=== PATIENT | female | born 1990 ===

== ENCOUNTER 2019-11-22 18:37 | Emergency (ER) | payer OTHER ==
[2019-11-22 18:50] VITALS: PULSE 90
--- NOTE | 2019-11-22 19:27 | EDM.PDOC ---
ED HPI GENERAL MEDICAL PROBLEM - General Chief Complaint: Upper Extremity Injury/Pain Stated Complaint: LT DUNG INJURY Time Seen by Provider: 11/22/19 19:04 Source of Information: Reports: Patient History Limitations: Reports: No Limitations - History of Present Illness INITIAL COMMENTS - FREE TEXT/NARRATIVE: HISTORY AND PHYSICAL: History of present illness: Patient is a 29-year-old female who presents to the emergency room with complaints of left clavicle pain. She was on a tube behind a boat when another person had fallen onto her shoulder. She has pain and obvious deformity of the left clavicle. She denies hitting her head or having any loss of consciousness. She denies any other extremity involvement. She has no numbness, weakness or difficulty with use of the left arm, although does have discomfort when involving the musculature around the clavicle. Patient denies any fever, chills, headache, change in vision, syncope or near syncope. Denies any chest pain, back pain, shortness of breath or cough. Denies any abdominal pain, nausea, vomiting, diarrhea, constipation or dysuria. Has not noted any blood in urine or stool. Patient has been eating and drinking appropriately. Review of systems: As per history of present illness and below otherwise all systems reviewed and negative. Past medical history: As per history of present illness and as reviewed below otherwise noncontributory. Surgical history: As per history of present illness and as reviewed below otherwise noncontributory. Social history: See social history for further information Family history: As per history of present illness and as reviewed below otherwise noncontributory. Physical exam: General: Well developed and well nourished 29-year-old female. Alert and orie ntated x 3. Nontoxic in appearance and in no acute distress. Vital signs are stable and have been reviewed by me. Nursing notes were reviewed. HEENT: Atraumatic, normocephalic, pupils equal and reactive bilaterally, negative for conjunctival pallor or scleral icterus, mucous membranes moist, trachea midline. No drooling or trismus noted. No meningeal signs. No hot potato voice noted. Lungs: Clear to auscultation, breath sounds equal bilaterally, chest nontender - left clavicle tenderness. Skin is intact and has no tenting. Normal work of breathing, no accessory muscles used. Heart: S1S2, regular rate and rhythm without overt murmur Abdomen: Soft, nondistended, nontender. C-spine/Back: No pinpoint vertebral tenderness upon palpation. No crepitus, step-offs or obvious deformities. Patient is ambulatory into the emergency room without difficulty or deficit. Able to rock back on heels and walk on toes. Denies any urinary or fecal incontinence. Denies any numbness, tingling or saddle paresthesia. No concerns of serious infection, fracture or cord compression, or cauda equina syndrome. Deep tendon reflexes brisk bilaterally. Skin: Intact, warm, dry. No lesions or rashes noted. Hematologic: No petechiae or purpra. Mucosa appropriate color and normal nail bed color and refill. Extremities: Left clavicle tenderness with deformity, no tenting. She moves all extremities per self without difficulty or deficits, negative for cords or calf pain. Neurovascular unremarkable. Neuro: Awake, alert, oriented. Cranial nerves II through XII unremarkable. Cerebellum unremarkable. Motor and sensory unremarkable throughout. Exam nonfocal. Notes: X-ray shows a displaced and comminuted mid left clavicle fracture with displacement. I did talk to Dr. Melchor Ramey at [facility] in [place], orthopedics stone cutter. He states the patient should follow-up within the week for reevaluation. This information was shared with the patient and she is comfortable with plan of care. Sling was provided with education, will wear until she follows up with the orthopedic provider. [id number] splint was reviewed and discussed, she declines wanting this. We discussed signs and symptoms that would prompt them to return to the Emergency Department. Medication, follow up and supportive care measures were reviewed and discussed. Voices understanding and is agreeable to plan of care. Denies any further questions or concerns at this time. Diagnostics: Clavicle xray Therapeutics: Westport, Sling Prescription: Westport Impression: Clavicle fracture, left Plan: 1. Today your physical exam shows a left clavicle fracture. Rest, ice and wear the sling as directed. 2. Tylenol and/or ibuprofen as needed for pain management. You can take the Westport for moderate to severe pain. This medication may cause drowsiness so do not take it while driving or needing to be functioning outside of the house. 3. Dr. Acosta, orthopedics in [place] will be available on Sunday or I did speak with Dr. Melchor Ramey, orthopedics in [place], who is also happy to see you. Please call either facility on Sunday to schedule an outpatient appointment. You should be seen in the next few days. If your symptoms should worsen, new symptoms develop or any of the signs and symptoms we discussed should arise please return to the emergency room or call 911 (if needed). Definitive disposition and diagnosis as appropriate pending reevaluation and review of above. 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 ED EXAM, GENERAL - Physical Exam Exam: See Below (See dictation) Course - Vital Signs Last Recorded V/S: Last Vital Signs Temp 96.3 F L 11/22/19 19:40 Pulse 90 11/22/19 19:40 Resp 14 11/22/19 19:40 BP 111/63 11/22/19 19:40 Pulse Ox 97 11/22/19 19:40 - Orders/Labs/Meds Orders: Active Orders 24 hr Category Date Time Status DME for Discharge [COMM] Stat Oth 11/22/19 19:40 Ordered Meds: Medications Discontinued Medications Generic Name Dose Route Start Last Admin Trade Name Freq PRN Reason Stop Dose Admin Hydrocodone Bitart/Acetaminophen 1 tab 11/22/19 19:40 11/22/19 19:45 Westport 325-5 Mg PO 11/22/19 19:41 1 tab ONETIME ONE Administration Departure - Departure Time of Disposition: 19:54 Disposition: Home, Self-Care 01 Clinical Impression: Fracture, clavicle closed, shaft Qualifiers: Encounter type: initial encounter Fracture alignment: displaced Laterality: left Qualified Code(s): S42.022A - Displaced fracture of shaft of left clavicle, initial encounter for closed fracture - Discharge Information Prescriptions: Acetaminophen/HYDROcodone [Westport 325-5 MG] 1 dose PO Q4H PRN #20 tablet PRN Reason: Pain Instructions: Clavicle Fracture, [id number] Referrals: Jerson Terry MD [Primary Care Provider] - Forms: ED Department Discharge Additional Instructions: The following information is given to patients seen in the emergency department who are being discharged to home. This information is to outline your options for follow-up care. We provide all patients seen in our emergency department with a follow-up referral. The need for follow-up, as well as the timing and circumstances, are variable depending upon the specifics of your emergency department visit. If you don't have a primary care physician on staff, we will provide you with a referral. We always advise you to contact your personal physician following an emergency department visit to inform them of the circumstance of the visit and for follow-up with them and/or the need for any referrals to a consulting specialist. The emergency department will also refer you to a specialist when appropriate. This referral assures that you have the opportunity for follow-up care with a specialist. All of these measure are taken in an effort to provide you with optimal care, which includes your follow-up. Under all circumstances we always encourage you to contact your private physician who remains a resource for coordinating your care. When calling for follow-up care, please make the office aware that this follow-up is from your recent emergency room visit. If for any reason you are refused follow-up, please contact the [facility] Emergency Department at and asked to speak to the emergency department charge nurse. [facility] - [facility] Professional Building [address] [place] [address], [address] [place] [address] [facility] [address] [place] [address] Thank you for choosing the [facility] emergency department in [place] for your medical needs today. It was a pleasure caring for you. Today you were seen in the emergency department for clavicle fracture. 1. Today your physical exam shows a left clavicle fracture. Rest, ice and wear the sling as directed. 2. Tylenol and/or ibuprofen as needed for pain management. You can take the Westport for moderate to severe pain. This medication may cause drowsiness so do not take it while driving or needing to be functioning outside of the house. 3. Dr. Acosta, orthopedics in [place] will be available on Sunday or I did speak with Dr. Melchor Ramey, orthopedics in [place], who is also happy to see you. Please call either facility on Sunday to schedule an outpatient appointment. You should be seen in the next few days. If your symptoms should worsen, new symptoms develop or any of the signs and symptoms we discussed should arise please return to the emergency room or call 911 (if needed). Sepsis Event Note (ED) - Evaluation Sepsis Screening Result: No Definite Risk - Focused Exam Vital Signs: Vital Signs Temp Pulse Resp BP Pulse Ox 11/22/19 19:40 96.3 F L 90 14 111/63 97 11/22/19 18:47 98.6 F 90 20 111/60 97 - My Orders Last 24 Hours: My Active Orders 11/22/19 19:40 DME for Discharge [COMM] Stat - Assessment/Plan Last 24 Hours: My Active Orders 11/22/19 19:40 DME for Discharge [COMM] Stat
[2019-11-22 19:40] VITALS: BP 111/63
[2019-11-22] MEDS ORDERED: Acetaminophen/HYDROcodone 325-5 MG Tab PO ONE (19:40)
--- NOTE | 2019-11-22 19:40 | CR ---
Indication: Left clavicle pain Technique: Two views left Comparison: None Findings: Displaced and comminuted mid left clavicle fracture with 1/2 shaft width inferior displacement of the distal fracture fragment on the 15 degree cephalad angle film. Normal alignment of the left shoulder. Impression: Displaced and comminuted left mid clavicle fracture. Dictated by Dustin Elliott MD @ Nov 22 2019 7:36PM Signed by Dr. Dustin Elliott @ Nov 22 2019 7:38PM
== END 2019-11-22 20:06 | disposition home or self-care (01) ==
LOC: MW.ED 18:37 → MERGE 18:37 → MW.ED 20:06
DX: S42.022A Displaced fracture of shaft of left clavicle, initial encounter for closed fracture (principal); W19.XXXA Unspecified fall, initial encounter
CPT/HCPCS: 73000; 99283; A9270